=== PATIENT | male | born 1960 | race Caucasian/White ===

== ENCOUNTER 2018-04-11 15:15 | Emergency (ER) | payer OTHER ==
[~2018-04-11] VITALS: Ht 190.5 cm; Wt 93.0 kg
[2018-04-11 15:25] VITALS: BP 163/71
--- NOTE | 2018-04-11 15:31 | PHYS DOC ---
Adult General Chief Complaint Chief Complaint: BACK PAIN OR INJURY HPI HPI Patient is a 57 year old male who presents to the ED today complaining of 7 out of 10 sharp intermittent right lateral neck pain and left elbow pain that began on March 13, 2018 after he fell. Patient states he was evaluated when he fell and has been following up with . He states nobody did an x-ray on his neck or his left elbow when he fell though he states he had no pain to those areas at that point. 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 He states he has previously taken tramadol with relief of some of his pain. (JOS GORDILLO APRN) Review of Systems Review of Systems Constitutional: Denies fever or chills [] Musculoskeletal: Reports right lateral neck pain and left elbow pain Integument: Denies rash or skin lesions [] Neurologic: Denies headache, focal weakness or sensory changes [] All other systems were reviewed and found to be within normal limits, except as documented in this note. (JOS GORDILLO APRN) Current Medications Current Medications Current Medications Medications (Trade) Dose Ordered Sig/Bijal Start Time Stop Time Status Last Admin Dose Admin Acetaminophen/ Hydrocodone Bitart (Lortab 5/325) 1 tab 1X ONCE 04/11/18 16:30 04/11/18 16:31 DC 04/11/18 16:20 1 TAB Cyclobenzaprine HCl (Flexeril) 10 mg 1X ONCE 04/11/18 16:30 04/11/18 16:31 DC 04/11/18 16:19 10 MG Naproxen (Naprosyn) 500 mg 1X STAT 04/11/18 16:13 04/11/18 16:14 DC 04/11/18 16:19 500 MG (SANJANA SORTO DO) Allergies Allergies Allergies Coded Allergies Type Severity Reaction Last Updated Verified shellfish derived Allergy Unknown Swelling 04/11/18 Yes (SANJANA SORTO DO) Physical Exam Physical Exam Constitutional: Well developed, well nourished, no acute distress, non-toxic appearance. [] Skin: Warm, dry, no erythema, no rash. [] Back: No tenderness, no CVA tenderness. [] Extremities: Cervical spine with no obvious deformity. Slight paraspinal muscle tenderness on the right cervical spine, no midline cervical spine tenderness, full passive range of motion to the cervical spine. Left elbow with no obvious deformity. Full range of motion to the left elbow, adequate plantar flexion and dorsiflexion of the left forearm, adequate radial, medial, ulnar sensation to the left upper extremity. +2 left radial pulse. Cap refill less than 2 seconds the left fingers. Neurologic: Alert and oriented X 3, normal motor function, normal sensory function, no focal deficits noted. [] Psychologic: Affect normal, judgement normal, mood normal. [] (JOS GORDILLO APRN) Current Patient Data Vital Signs Vital Signs Date Time Temp Pulse Resp B/P (MAP) Pulse Ox O2 Delivery O2 Flow Rate FiO2 04/11/18 15:25 98.0 72 18 163/71 (101) 98 Room Air 98.0 (SANJANA SORTO DO) EKG EKG [] (JOS GORDILLO APRN) Radiology/Procedures Radiology/Procedures []PROCEDURE: CT CERVICAL SPINE WO CONTRAST Examination: CT CERVICAL SPINE WO CONTRAST History: fall cortical fx on XR NO PREV Comparison/Correlation: 04/11/2018 cervical spine x-ray exam Findings: Axial images of the cervical spine were obtained without contrast. Sagittal and coronal reformatted images provided. Mild atlantoaxial joint degenerative changes present. Deformity questioned at the C2 vertebral body anteriorly on x-ray examination is developmental in appearance. No suspicious displaced fracture. No suspicious soft tissue swelling. Bony encroachment at the C2-3 neural foramina bilaterally noted. Vertebral body heights are unremarkable. Mild C7-T1 disc space narrowing is present. Moderate facet joint degenerative hypertrophy bilaterally seen from C2 to C5. No acute fracture or bony destructive change. Soft tissues of neck are unremarkable. Impression: Degenerative changes of the cervical spine. No fracture or bony destruction. Alignment within normal limits. PQRS Compliance Statement: One or more of the following individualized dose reduction techniques were utilized for this examination: 1. Automated exposure control 2. Adjustment of the mA and/or kV according to patient size 3. Use of iterative reconstruction technique Electronically signed by: Teja Vang MD (04/11/2018 5:42 PM) [facility] DICTATED and SIGNED BY: TEJA VANG MD DATE: 04/11/18 1737 (JOS GORDILLO APRN) Course & Med Decision Making Course & Med Decision Making Pertinent Labs and Imaging studies reviewed. (See chart for details) This is a 57-year-old male patient presenting to the ED today complaining of neck pain and left elbow pain status post falling 2018. X-ray of the left elbow is negative for any acute findings. CT of the cervical spine is negative for any acute findings, noted for DJD, patient was discharged with cyclobenzaprine and diclofenac. Follow-up with PCP in 1-2 weeks. (JOS GORDILLO APRN) Dragon Disclaimer Dragon Disclaimer This electronic medical record was generated, in whole or in part, using a voice recognition dictation system. (JOS GORDILLO APRN) Departure Departure Impression: Primary Impression: Fall from standing Additional Impressions: DJD (degenerative joint disease) of cervical spine Left elbow contusion Cervical strain, acute Disposition: 01 HOME, SELF-CARE Condition: STABLE Referrals: WARREN FORTUNE MD follow up next week Patient Instructions: Cervical Strain and Sprain with [facility], Contusion, [id number], Fall Prevention and Home Safety, [id number] Additional Instructions: You were evaluated in the emergency room for neck pain and left elbow pain. Your X-rays of the left elbow and CT of the cervical spine are negative for any acute findings. Take the prescribed medications as needed for pain. Follow- up with the orthopedic doctor primary care doctor in the next 7 days. Scripts Diclofenac Sodium (DICLOFENAC SODIUM) 50 Mg Tablet.dr 1 TAB PO BID, #30 TAB 0 Refills Prov: JOS GORDILLO APRN 04/11/18 Cyclobenzaprine Hcl (CYCLOBENZAPRINE HCL) 10 Mg Tablet 1 TAB PO TID, #30 TAB Prov: JOS GORDILLO APRN 04/11/18 Attending Signature Attending Signature I have reviewed the PA/SENIOR FINANCE MANAGER's note and plan of care. I was available for consultation as needed during the patient's visit in the emergency department. I agree with the clinical impression, plan, and disposition. (SANJANA SORTO DO) Problem Qualifiers Primary Impression: Fall from standing Encounter type: initial encounter Qualified Codes: W19.XXXA - Unspecified fall, initial encounter Additional Impressions: DJD (degenerative joint disease) of cervical spine Spinal osteoarthritis complication: unspecified spinal osteoarthritis Qualified Codes: M47.812 - Spondylosis without myelopathy or radiculopathy, cervical region Left elbow contusion Encounter type: initial encounter Qualified Codes: S50.02XA - Contusion of left elbow, initial encounter Cervical strain, acute Encounter type: initial encounter Qualified Codes: S16.1XXA - Strain of muscle, fascia and tendon at neck level, initial encounter JOS GORDILLO APRN Apr 11, 2018 15:31 SANJANA SORTO DO Apr 12, 2018 01:34
[2018-04-11] MEDS ORDERED: NAPROXEN 500 MG TABLET PO STA (16:13)
[2018-04-11] MEDS ORDERED: CYCLOBENZAPRINE 10 MG TABLET. PO ONE (16:30)
[2018-04-11] MEDS ORDERED: HYDROcodone/APAP 5/325MG 1 TAB TABLET PO ONE (16:30)
--- NOTE | 2018-04-11 16:37 | RAD ---
Examination: 3 views of the left elbow HISTORY: History of pain, fall COMPARISON: None available FINDINGS: The alignment of the elbow joint grossly appears unremarkable. There is no acute fracture or dislocation identified. No significant joint effusion identified IMPRESSION: No acute osseous findings Electronically signed by: Mino Blanton MD (04/11/2018 4:34 PM) [id number]
--- NOTE | 2018-04-11 16:45 | RAD ---
Examination: 3 views of the cervical spine HISTORY: History of fall, pain COMPARISON: None available FINDINGS: The cervical vertebral body heights are maintained. The spinolaminar line is maintained. The facets appear to be well aligned. Mild intervertebral disc height loss identified throughout cervical spine likely degeneration. The lateral masses of C1 are aligned with C2 vertebra. The C2 dens appears intact. There is faint cortical step-off identified in the anterior aspect of the C2 vertebral body probably due to projection. Impression: 1. Faint cortical step-off identified in the anterior aspect of the C2 vertebral body probably due to projection and less likely fracture. Recommend CT cervical spine for further evaluation. 2. Mild degenerative changes cervical spine. Electronically signed by: Mino Blanton MD (04/11/2018 4:42 PM) [id number]
--- NOTE | 2018-04-11 17:45 | RAD ---
Examination: CT CERVICAL SPINE WO CONTRAST History: fall cortical fx on XR NO PREV Comparison/Correlation: 04/11/2018 cervical spine x-ray exam Findings: Axial images of the cervical spine were obtained without contrast. Sagittal and coronal reformatted images provided. Mild atlantoaxial joint degenerative changes present. Deformity questioned at the C2 vertebral body anteriorly on x-ray examination is developmental in appearance. No suspicious displaced fracture. No suspicious soft tissue swelling. Bony encroachment at the C2-3 neural foramina bilaterally noted. Vertebral body heights are unremarkable. Mild C7-T1 disc space narrowing is present. Moderate facet joint degenerative hypertrophy bilaterally seen from C2 to C5. No acute fracture or bony destructive change. Soft tissues of neck are unremarkable. Impression: Degenerative changes of the cervical spine. No fracture or bony destruction. Alignment within normal limits. PQRS Compliance Statement: One or more of the following individualized dose reduction techniques were utilized for this examination: 1. Automated exposure control 2. Adjustment of the mA and/or kV according to patient size 3. Use of iterative reconstruction technique Electronically signed by: Teja Reis MD (04/11/2018 5:42 PM) [facility]
[2018-04-11] MEDS ORDERED: DICL50TA4 PO (17:55)
[2018-04-11] MEDS ORDERED: CYCL10TA2 PO (17:55)
== END 2018-04-11 18:05 | disposition home or self-care (01) ==
LOC: ER 15:15
DX: S16.1XXA Strain of muscle, fascia and tendon at neck level, initial encounter (principal); S50.02XA Contusion of left elbow, initial encounter; M47.812 Spondylosis without myelopathy or radiculopathy, cervical region; Z91.013 Allergy to seafood; X50.3XXA Overexertion from repetitive movements, initial encounter; Y93.89 Activity, other specified; Y92.69 Other specified industrial and construction area as the place of occurrence of the external cause; Y99.0 Civilian activity done for income or pay
CPT/HCPCS: 72040; 72125; 73080; 99284-25